=== PATIENT | female | born 1960 | race Caucasian/White ===

== ENCOUNTER 2017-02-23 17:24 | Day surgery (SDC) | payer OTHER ==
[2017-02-23] VITALS (21 sets, daily range): BP systolic 97–123; BP diastolic 56–69; PULSE 60–94; RESP 14–16; TEMP 96.7–98.3; O2SAT 60–100; Ht 160 cm; Wt 56.5 kg
[~2017-02-23] VITALS: Ht 160 cm; Wt 56.5 kg
--- OUTSIDE RECORDS SUMMARY | 2017-02-23 17:28 | XMS REPORT | CCD ---
Author Author ROSI AGUIRRE Organization Unknown Address [address], [place] [id number] Phone 0 Care Team Providers Care Waterproof Bag Sewer Name Role Phone Jaci CASIANO Attending Physician 0 Vital Signs Unknown or Not Available. Allergies Unknown or Not Available. Procedures Unknown or Not Available. History of Immunizations Unknown or Not Available. Problems Unknown or Not Available. Results LIPID PANEL - Collect Date/Time: 11/15/2014 11:15 Test Name Code Test Result Test Units Test Ref Range CHOLESTEROL 184 mg/ dL L=0 H=200 TRIGLYCERIDES 55 mg/ dL L=30 H=150 HDL 90 mg/dL L=50 H=60 LDL, CALC 83 mg/dL L=0 H=100 VLDL 11 mg/dL L=0 H=40 CHOL/HDL RISK 2.0 RATIO L=0.0 H=4.4 PT FASTING: NO N/A Active Medications Unknown or Not Available. Medications Administered During Visit Unknown or Not Available. Encounters Unknown or Not Available. Social History Smoking Status Code Start Date End Date Unknown if ever smoked [id number] Patient Decision Aids Unknown or Not Available. Discharge Instructions You were admitted to [facility] [place]. You were discharged from [facility] [place] 11/15/[place]. Should you have any questions prior to discharge, please contact a member of your healthcare team. If you have left the hospital and have any questions, please contact your primary care physician. Chief Complaint and Reason For Visit Chief Complaint Date of Onset LAB Function Status Unknown or Not Available. Plan of Care Unknown or Not Available. Referral/Transition of Care Unknown or Not Available.
--- OUTSIDE RECORDS SUMMARY | 2017-02-23 17:28 | XMS REPORT | CCD ---
Author Author ROSI AGUIRRE Organization Unknown Address [address], [place] [id number] Phone 0 Care Team Providers Care Health Promotion Coordinator Name Role Phone Dariel JACKSON MD Attending Physician [phone] Vital Signs Unknown. Allergies Unknown. Procedures Unknown. History of Immunizations Unknown. Problems Unknown. Results Unknown. Medications Unknown. Medications Administered Unknown. Encounters Unknown. Social History Smoking Status Code Start Date End Date Unknown if ever smoked [id number] Patient Decision Aids Unknown. Discharge Instructions You were admitted to [facility] on 04/01/2014. You were discharged from [facility] on 04/01/2014. Should you have any questions prior to discharge, please contact a member of your healthcare team. If you have left the hospital and have any questions, please contact your primary care physician. Chief Complaint and Reason For Visit Chief Complaint Date of Onset US Function Status Unknown. Plan of Care Unknown. Referral/Transition of Care Unknown.
--- OUTSIDE RECORDS SUMMARY | 2017-02-23 17:28 | XMS REPORT | CCD ---
Author Author DEEPA MOSLEY Organization Unknown Address [address], [place] [id number] Phone 0 Care Team Providers Care Pm Head Cook Name Role Phone GILBERT STOUT Attending Physician [phone] Vital Signs Unknown. Allergies Unknown. Procedures Unknown. History of Immunizations Unknown. Problems Unknown. Results Unknown. Medications Unknown. Medications Administered Unknown. Encounters Unknown. Social History Smoking Status Code Start Date End Date Unknown if ever smoked [id number] Patient Decision Aids Unknown. Instructions You were admitted to [facility] [place] on 12/30/2013. You were discharged from [facility] on 12/30/2013. Should you have any questions prior to discharge, please contact a member of your healthcare team. If you have left the hospital and have any questions, please contact your primary care physician. Chief Complaint and Reason For Visit Chief Complaint Date of Onset U/S ABD-LIVER/SPLEEN Function Status Unknown. Plan of Care Unknown. Referral/Transition of Care Unknown.
--- OUTSIDE RECORDS SUMMARY | 2017-02-23 17:28 | XMS REPORT | Continuity of Care Document ---
Author Author [facility] Organization [facility] Address Unknown Phone Unavailable Allergies Medications Problems Procedures Results Encounters ACCT No. Visit Date/Time Discharge Status Pt. Type Provider Facility Loc./Unit Complaint [id number] 02/08/2014 10:21:00 2013 10:21:00 DIS Outpatient Navi HOFFMANN, Guzman Vieira [facility] W.[place]
--- NOTE | 2017-02-23 17:30 | NUR ---
ARRIVED TO FLOOR PT ARRIVED TO THE FLOOR AT THIS TIME, AMBULATORY. PT ALERT AND ORIENTED X3, VITAL SIGNS STABLE, ON RA. PT IS ACCOMPANIED BY FRIEND. IV SITE TO LEFT FOREARM PRESENT FROM [facility] VISIT THAT FLUSHES WELL. PT CHANGED INTO A GOWN. CONTINUE WITH ADMIT.
[2017-02-23] MEDS ORDERED: ERTAPENEM 1 G INJECTION IM ONE (17:45)
[2017-02-23] MEDS ORDERED: FAMOTIDINE 20 MG in NORMAL SALINE 50 ML IV ONE (17:45)
[2017-02-23] MEDS ORDERED: MORPHINE SULFATE 2 MG SYRINGE IV PRN (17:45)
[2017-02-23] MEDS ORDERED: ONDANSETRON 4mg/2ml INJECTION IV PRN ×3 (17:45→19:30)
--- NOTE | 2017-02-23 17:45 | ANESPREOP ---
Anesthesia Record Date and Time DATE: 02/23/17 TIME: 17:43 Pre-Op Diagnosis acute appendicitis Proposed Surgical Procedure lap appy NPO since: a couple of bites of saltine crackers today at 11 am, but threw it up. Ht/Wt/BMI Height: 5 ' 3.00 " Weight: 55.800 kg BMI: 21.8 kg/m2 Medications Inpatient Medications Current Medications Medications (Trade) Dose Ordered Sig/Frida Start Time Stop Time Status Last Admin Dose Admin Lactated Ringer's (Lactated Ringers) 1,000 ml @ 125 mls/hr Q8H 02/23/17 17:45 UNV Morphine Sulfate (Morphine) SEE DOSE. Q1H PRN 02/23/17 17:45 UNV Ondansetron HCl (Zofran) 4 mg Q6H PRN 02/23/17 17:45 UNV Currently on Beta María: No Medical/Surgical History Anesthesia PMH: Reports: Reflux (occasionally), UTI Smoking Status: Never smoker Use Chewing Tobacco?: No Second Hand Exposure: No Substance Use Type: does not use Alcohol Intake: none Past Surgical History Orthopedic Surgeries: Abdominal Surgeries: Genitourinary Surgeries: Cardiac Surgeries: Endocrine Surgeries: Reproductive Surgeries: Neurological Surgeries: Ear Surgeries: Nose Surgeries: Throat Surgeries: Other Surgeries: Anesthesia Adverse Reactions: FOUND none Family Hx of Anesthesia Advers: none Hx of Motion Sickness: No Physical Exam Respiratory: Bilat breath sounds equal, Lungs clear Cardiovascular: FOUND Regular rate, rhythm Airway Assessment Mallampati Score: I TMD: 3 Fingerbreadths Neck Extension: Good Overall Assessment: No Airway Concerns ASA: 2, E Plan Anesthesia Plan: GETA Discussion Discussed risks/options/alternatives of anesthesia and questions answered. Patient consents. Nursing pain assessment noted. Present: Family Member Attestation Statement Prior to the delivery of any anesthetic medication, I examined the patient, developed the plan, obtained the patient's consent and discussed the risk and benefits of the procedure with the patient/guardian. MARA CARDOSO CRNA Feb 23, 2017 17:45
[2017-02-23] MEDS: LR 1,000 ML IV SCH ×2 (17:48→19:38)
[2017-02-23] MEDS ORDERED: ROCURONIUM 50mg/5ml INJECTION IV ONE (17:49)
[2017-02-23] MEDS ORDERED: FENTANYL 250mcg/5ml INJECTION ONE (17:49)
[2017-02-23] MEDS ORDERED: ONDANSETRON 4mg/2ml INJECTION ONE (17:49)
[2017-02-23] MEDS ORDERED: PROPOFOL 200mg 20 ML IV ONE (17:49)
[2017-02-23] MEDS ORDERED: DEXAMETHASONE 4mg/ml - 1ml INJECTION ONE (17:49)
[2017-02-23] MEDS ORDERED: LACT1CAP72 (18:05)
[2017-02-23] MEDS ORDERED: IBUP-1724 PO (18:05)
[2017-02-23] MEDS ORDERED: CITA10TA13 PO (18:05)
[2017-02-23] MEDS ORDERED: RANI150T12 PO (18:05)
--- NOTE | 2017-02-23 18:06 | HPPDOC ---
HPI - Adult Date DATE: 02/23/17 TIME: 18:03 General History of Present Illness 56 yo presents with RLQ abdominal pain Past Medical History Past Medical History Gerd, Nephrolithiasis Surgical History Patient's Surgical History: See dictated H and P Current Medications Home Meds Reported Medications Ibuprofen (Ibuprofen) 200 Mg Tablet, 1 TAB PO Q4H Y for PAIN, TAB 02/23/17 Ranitidine HCl (Zantac) 150 Mg Tablet, 150 MG PO BID for ACID REFLUX, TAB Take 1 tablet, by mouth, 2 times a day. 02/23/17 Lactobacillus Combo No.11 (Probiotic) 1 Each Cap.sprink, 2 02/23/17 Citalopram Hydrobromide (Celexa) 10 Mg Tablet, 1 TAB PO DAILY, TAB 02/23/17 Allergies: Coded Allergies: nitrofurantoin (Verified Allergy, Unknown, NAUSEA, 02/23/17) Family History Family History: History for prostate cancer in 2 brothers Social History Smoking Status: Never smoker Does patient use chewing tobac: No Second Hand Exposure: No Substance Use Type: does not use Advance Directives: Yes DPOA for Healthcare Only (MARA DELA CRUZ - ) GS Physical Exam Vital Signs Date Time Temp Pulse Resp B/P Pulse Ox O2 Delivery O2 Flow Rate FiO2 02/23/17 17:49 96.7 65 16 103/63 95 Room Air Height (Feet): 5 Height (Inches): 3.00 Weight (Kilograms): 55.800 BMI 21.8 FOUND: PERRL Respiratory: FOUND: clear all salomon Abdominal Brief: FOUND: Roving's sign, involuntary guarding, tender, voluntary guarding GS Assessment & Plan Assessment Appendicitis Plan Laparoscopic Appendectomy. See full dictated H and P for detail Code Status Full Code, unverified Hospital Course Summary Disclaimer The visit summary below is not to be considered part of the above Progress Note. ANY PERRY MD, FACS, CWS Feb 23, 2017 18:06
--- NOTE | 2017-02-23 18:12 | NUR ---
LEFT FLOOR PT LEFT THE FLOOR AT THIS TIME, VIA PRE-OP CART AND ACCOMPANIED BY IMPREGNATING HELPER. PT ALERT AND ORIENTED X3, VITAL SIGNS STABLE, ON RA. IV PEPCID VERIFIED WITH PRE-OP RN CHERIE LAWSON AND STARTED PRIOR TO PT LEAVING.
[2017-02-23] MEDS ORDERED: KETOROLAC 15mg/ml INJECTION IV PRN (19:15)
[2017-02-23] MEDS ORDERED: METOCLOPRAMIDE 10mg/2ml INJECTION IV PRN (19:15)
[2017-02-23] MEDS ORDERED: MORPHINE 10mg/ml vl INJECTION IV PRN (19:15)
[2017-02-23] MEDS ORDERED: MORPHINE SULFATE 4 MG SYRINGE IV PRN (19:15)
--- NOTE | 2017-02-23 19:16 | GSPOSTPN ---
Procedure Procedure Surgeon: [place] Anesthesia: SARAH ASA: 2, E Procedure Laparoscopic appendectomy GS Diagnosis Preop Diagnosis appendicitis Postop Diagnosis same Complications Complications none Estimated Blood Loss See Anesthesia Record. Vital Signs See Anesthesia and PACU record. ANY PERRY MD, FACS, CWS Feb 23, 2017 19:16
[2017-02-23] MEDS ORDERED: HYDROMORPHONE 2mg/ml INJECTION IV PRN (19:30)
--- NOTE | 2017-02-23 19:36 | ANESPO ---
Post-Op Note Date 02/23/17 Time: 19:34 Status Pt Participated in Evaluation: Pt participated in person Vital Signs Date Time Temp Pulse Resp B/P Pulse Ox O2 Delivery O2 Flow Rate FiO2 02/23/17 19:27 16 02/23/17 18:00 65 02/23/17 17:49 96.7 103/63 95 Room Air Respiratory Function: Airway patent, Regular respirations Cardiovascular Function: Regular pulse Mental Status: Alert/oriented Pain Level Intensity: 4 Hydration: IV infusing Complications during Recovery None apparent Follow-Up Instructions Instructions Per Surgeon MARA CARDOSO CRNA Feb 23, 2017 19:35
--- NOTE | 2017-02-23 19:55 | NUR ---
RETURN FROM OR PATIENT RETURNS FROM OR BY CART. TRANSFERRED BY SCOOTING. VITALS ARE STABLE ON 2L NC. PATIENT DENIES PAIN, N/V AT THIS TIME. WILL CONTINUE TO MONITOR.
[2017-02-23] MEDS ORDERED: ERTAPENEM 1 G in NORMAL SALINE 100 ML IV ONE (20:00)
[2017-02-24 00:27] VITALS: BP 97/57; PULSE 67; O2SAT 99
[2017-02-24] MEDS: HYDROCODONE/APAP 5 mg/325 mg TABLET PO PRN ×3 (01:13→12:59)
[2017-02-24 04:33] VITALS: BP 110/65; PULSE 62; RESP 16; TEMP 97.7; O2SAT 100
[2017-02-24] MEDS: LR 1,000 ML IV SCH ×2 (04:33→05:11)
[2017-02-24 04:36] VITALS: O2SAT 98
--- NOTE | 2017-02-24 05:32 | NUR ---
SHIFT SUMMARY PATIENT IS ALERT AND ORIENTED X3 THIS SHIFT. VITAL SIGNS STABLE. PATIENT RETURNED FROM OR ON 1L NC. THIS HAD TO BE INCREASED TO 2L, BUT HAS SINCE BEEN TITRATED TO ROOM AIR. PATIENT AMBULATES WELL WITH STAND BY. PAIN IS WELL CONTROLLED WITH AVAILABLE PO PAIN MEDICATIONS. LAP SITES ARE DRY AND INTACT. WILL CONTINUE TO MONITOR.
[2017-02-24 07:41] VITALS: BP 88/54; PULSE 68; RESP 18; TEMP 98.4; O2SAT 98
[2017-02-24 08:27] VITALS: PULSE 68; RESP 16
--- NOTE | 2017-02-24 10:05 | HPF ---
FINDINGS Mrs. Farah is a 56-year-old female whom I was asked to see from [facility] in [place], [place] as a result of her history, physical and radiographic findings indicative for appendicitis. Patient informs me that when she had awakened this morning she began to notice a fair amount of discomfort within her right lower quadrant. She had a component of some nausea and vomiting in association with pain. Pain is made worse when "someone pushes on her." Pain is somewhat better by lying still. Pain is constant in nature. As a result of the severe pain she presented to [facility] and had underwent a CT scan revealing evidence for appendicitis. The patient has been subsequently sent to our facility for further management. Additionally CT scan also revealed a small kidney stone involving the distal ureter. Per her report there was no evidence for ureteral dilatation or hydronephrosis. PAST MEDICAL HISTORY Findings/System disorders: 1. History for chronic back pain. 2. History for gastroesophageal reflux disease. 3. History PAST SURGICAL HISTORY 1. Back surgery. 2. Prior lithotripsy. 3. Prior EGD and colonoscopy. MEDICATIONS 1. Celexa. ALLERGIES ,Macrobid. Allergies include Macrobid. SOCIAL HISTORY The patient has no alcohol or tobacco use. FAMILY HISTORY The patient states her mother and father alive and healthy. She has had two brothers who have been diagnosed with prostate cancer. REVIEW OF SYSTEMS Review of systems undertaken with the patient essentially negative except as stated in findings section and past medical history section for constitutional, HEENT, cardiac, respiratory, GI, , musculoskeletal, Hematology/Oncology, endocrine, psychiatric. PHYSICAL EXAMINATION GENERAL: Patient is a 56-year-old female who did not appear to be in acute distress but did not appear to be comfortable in nature. She was sitting fairly still in bed with her leg somewhat drawn in an upward fashion. VITAL SIGNS: Temperature 96.7, pulse 65, respirations 16, blood pressure 103/63, SAO2 95% room air. HEENT: Normocephalic. Pupils are equally round with accommodation. NECK: Supple without lymphadenopathy. CHEST: Clear to auscultation bilaterally. HEART: Regular rate and rhythm. Normal S1 and S2 without gallops, murmurs or clicks. ABDOMEN: Palpation of the abdomen reveals it to be soft, nontender within the right upper quadrant and left upper quadrant. Palpation in the left lower quadrant resulted in referred pain to her right lower quadrant, i.e. positive Rovsing sign. Palpation within the right lower quadrant revealed exquisite tenderness. She did have a component of voluntary and involuntary guarding with palpation of the right lower quadrant. She didn't have evidence for hepatosplenomegaly or other abnormal masses. EXTREMITIES: Without clubbing, cyanosis, or edema. NEURO: Cranial nerves II-XII grossly intact. Patient is without focal motor or sensory deficits. LABORATORY/RADIOGRAPHIC EVALUATION Patient had an amylase and lipase level obtained from an outside facility that was within normal limits. She had a CMP obtained and it was found to be essentially within normal limits with the exception bilirubin is slightly elevated at 1.4. CBC was obtained and white count was elevated 13.2. Hemoglobin slightly low at 11.9. UA was obtained. She did have several RBCs corresponding with her ureterolithiasis noted on CT scan. CT scan did reveal an acute appendicitis secondary to an appendicolith. There is no evidence for abscess of free air. The patient was found have a small ovarian cyst. She is found to have a 3 mm nonobstructing right UVJ stone. ASSESSMENT 56-year-old female with acute appendicitis and finding of ureterolithiasis upon CT scan. PLAN From a general surgical standpoint I informed the patient that her history, physical findings and CT scan findings as well as her laboratory results are all indicative for appendicitis. It was therefore my recommendation that we should proceed with surgical intervention/laparoscopic appendectomy. Did discuss in detail with the patient and her mother who was present what a laparoscopic appendectomy entailed and its associated risks which included but was not inclusive of bleeding, infection, as well as potential conversion to an open procedure. The patient understood and wished to proceed. The patient will have additional followup at a later time in regards to her finding of ureterolithiasis. This small nonobstructing kidney stone should "pass on its own behalf." [facility]
[2017-02-24 11:16] VITALS: BP 104/59; PULSE 74; RESP 16; TEMP 98.2; O2SAT 98
[2017-02-24] MEDS ORDERED: HYDR-4246 PO (12:36)
--- NOTE | 2017-02-24 12:45 | NUR ---
SCRIPTS PRESCRIPTIONS FOR PAIN MEDICATION GIVEN TO THE FAMILY TO FILL AT LOCAL PHARMACY. NORCO 5/325 1-2 TABS PO Q5H NEEDED FOR PAIN PRESCRIBED BY DR. PERRY.
--- NOTE | 2017-02-24 13:20 | NUR ---
DISMISSAL PT HAS BEEN AMBULATING IN [facility] WITHOUT DIFFICULTY. PO PAIN MEDS MANAGING PAIN WELL. PT VERBALIZES UNDERSTANDING GAS PAIN WILL HAVE TO DISSIPATE ON ITS OWN, WALKING HELPS. WENT OVER WRITTEN DISMISSAL INSTRUCTIONS WITH PT INCLUDING DIET, ACTIVITY/RESTRICTIONS, WOUND CARE, F/U APPT, S/SX TO REPORT. PT VERBALIZED UNDERSTANDING. 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 PT AMBULATED OUT OF [facility] ACCOMPANIED BY [facility] TO FRONT ENTRANCE FOR TRANSPORT HOME BY FAMILY.
--- NOTE | 2017-02-24 13:44 | OPNOTEF ---
DATE OF OPERATION 02/23/17 PREOPERATIVE DIAGNOSIS Appendicitis. POSTOPERATIVE DIAGNOSIS Appendicitis. PROCEDURE Laparoscopic appendectomy. ANESTHESIA General endotracheal. FLUIDS Please see chart. INDICATIONS Mrs. Farah is a 56-year-old female who I was asked to accept as a new patient from [facility] in [place], [place] as a result of her history and physical findings and radiographic evidence indicative for appendicitis. I did accept the patient in transfer. Upon examination the patient was found exquisitely tender within her right lower quadrant. Did have a component of leukocytosis. CT scan obtained at outside facility did reveal evidence for appendicitis. This as a result of the above indications it was recommended to the patient she undergo surgical intervention. FINDINGS Upon laparoscopy liver edge was smooth without nodularities. Small bowel, omentum, colon which was visualized was within normal limits. Appendix was found to be significantly indurated and erythematous in nature consistent with that of appendicitis. There is no evidence for shelbi perforation. A standard appendectomy was able to be completed without incident. PROCEDURE After informed consent was obtained the patient was brought to the operative suite and placed on the table in supine fashion. Abdomen was prepped and draped in sterile fashion. A formal time-out was then completed. 0.25% of Marcaine with epinephrine was injected just beneath the umbilicus. A 2 cm curved incision was made through the area of analgesia. Dissection was carried down into the deep subcuticular tissues and underlying fascia. The fascia was then grasped with two Latricia clamps and retracted anteriorly. A 1 cm incision was then made between the two Latricia clamps. Hemostat was then introduced and the fascial incision gently spread. A U stitch was then placed with 0 Vicryl. A 12 mm on Scar port was then placed the peritoneal cavity and pneumoperitoneum was established to a patient pressure of 15 mmHg of carbon dioxide. Next an additional 12 mm port was then placed within the right upper quadrant as well as additional 5 mm port within the suprapubic region. Each port site was preinjected with 0.25% Marcaine and epinephrine placed under visualization. Abdominal cavity was explored via laparoscopic. Findings were as noted above. Appendix was found to be erythematous in and or indurated in nature and did contain a component of a minimal amount of periappendiceal exudate. There was no evidence for perforation. Appendix was able be grasped and retracted anteriorly. A small opening was then created within the mesoappendix adjacent to the base of the appendix. A linear stapler with a GI load was then placed across the base of the appendix and fired. Vascular reload was then replaced within the linear stapler and placed across the mesoappendix and fired. Unfortunately the stapler did misfire. There was a small amount of bleeding that began to occur and an arising hemoclip was then placed at the site of bleeding resulting in hemostasis. A vascular reload was then undertaken and replaced within the linear stapler and placed across the mesoappendix and subsequently fired a second time. This did result in the completion of the staple line that was intact. Appendix was then removed from the infraumbilical port site. Irrigation was performed and all irrigant was suctioned until clear. Both the staple lines were carefully inspected and found be hemostatic and completely intact in nature. All irrigant was suctioned until clear. Next, ports removed under direct visualization. Previously placed U stitch at the infraumbilical port was then secured imbricating the fascia. All skin incisions were then closed in a subcuticular fashion with 4-0 Monocryl. Dermabond was placed overlying the incisions. The patient has awakened from her anesthetic and will be sent back to recovery room once deemed in stable condition. ARELY
--- NOTE | 2017-02-24 15:48 | PNF ---
DATE 02/24/17 FINDINGS Mrs. Farah this morning states she is feeling better. The pain that she was experiencing in her right lower quadrant has resolved. She now has experienced some incisional discomfort as one would expect. PHYSICAL EXAMINATION VITAL SIGNS: Afebrile, normotensive. ABDOMEN: Soft. Minimal tenderness. No evidence for guarding or rebound. ASSESSMENT Status post laparoscopic appendectomy, patient doing well. PLAN Discharged to home. Please refer to discharge instructions.. YAND
--- OUTSIDE RECORDS SUMMARY | 2017-02-25 09:00 | XMS REPORT | Continuity of Care Document ---
Author Author Organization Address Unknown Phone Unavailable Support Name Relationship Address Phone SUJIT KEATING APRN Caregiver [address] [place] [id number] Unavailable ANY PERRY FACS, MD Caregiver [address] [place] [address] [place] [address] Unavailable ANY PERRY FACS, MD Caregiver [address] [place] [address] [place] [address] Unavailable MARA DELA CRUZ Next Of Kin [address] [place] [address] Insurance Providers Guarantor Zara Dela Cruz Address [address] [place] [address] Email DENIED 17 Payer Other A Insurance Policy Number [id number] Subscriber's Name LanieZara kramer Relationship 18 Self Effective Date 15 Advance Directives Directive Response Recorded Date/Time Ordered Resuscitation Status Full Code, unverified 02/23/17 5:38pm Resuscitation Documents on File No 02/23/17 5:36pm DPOA for Healthcare Only Y MARA Vieira. LANIE - 02/23/17 6:06pm Living Will Yes 02/23/17 5:36pm Problems No problem information available. Medications Current Home Medications Medication Dose Units Route Directions Days Qty Instructions Start Date Citalopram Hydrobromide (Celexa) 10 Mg Tablet 1 Tab Oral Daily Hydrocodone/Acetaminophen ([place] 5-325 Tablet) 5-325 Tablet 1-2 Tab Oral Every 5 Hours as needed for Pain 20 Tablet 02/24/17 Ibuprofen 200 Mg Tablet 1 Tab Oral Every 4 Hours as needed for Pain 02/23/17 Lactobacillus Combo No.11 (Probiotic) 1 Each Cap.sprink 2 02/23/17 Ranitidine Hcl (Zantac) 150 Mg Tablet 150 Mg Oral Twice A Day for Acid Reflux Take 1 tablet, by mouth, 2 times a day. 02/23/17 Social History Social History Problem Response Recorded Date/Time Onset Date Status Reason for Hospitalization appendicitis 02/24/2017 12:40pm Not Applicable Not Applicable Query Response Start Date Stop Date Smoking Status Never smoker Hospital Discharge Instructions Instructions: Care Instructions: I was in the hospital because (patient own words): "PAIN ON THE RIGHT SIDE, LOWER ABDOMEN" Discharge Diet: Regular Discharge Activity: Ad janna Follow Up Appointments: Call office for appointment in 10-14 days Pending Lab / Results: No Pending Lab Expected Signs/Symptoms: incisional tendernes Notify Physician If: Increasing pain or discomfort. During Business Hours:: Please call the physician's office at After Business Hours:: Please call [phone] and have the robotype operator page the physician. Pain Management/Treatment: Utilize pain medications as needed Pain Scale Utilized to Educate Patient: 0-10 Pain Scale Wound/Incision Care: May shower or bath Condition at time of discharge: Good Plan of Care Discharge Date 02/24/17 1:20pm Disposition 01 DISCHARGED HOME, SELF-CARE Instructions/Education Provided Laparoscopic Appendectomy (DC) Prescriptions See Medication Section Care Plan and Goals See Discharge Instructions Section Functional Status Query Response Date Recorded Mobility Status Ambulatory February 23, 2017 5:44pm Assistive Devices None February 23, 2017 5:44pm Activity Limitations None February 23, 2017 5:44pm Feeding Ability Independent February 23, 2017 5:44pm Toileting Ability Independent February 23, 2017 5:44pm Grooming Ability Independent February 23, 2017 5:44pm Dressing Ability Independent February 23, 2017 5:44pm Driving Ability Independent February 23, 2017 5:44pm Housework Ability Independent February 23, 2017 5:44pm Meal Preparation Ability Independent February 23, 2017 5:44pm Stair Climbing Ability Independent February 23, 2017 5:44pm Ability to complete ADL's impeded by No change February 23, 2017 5:44pm Cognitive/Perceptual Impairments None February 23, 2017 5:44pm Allergies, Adverse Reactions, Alerts Allergen Type Severity Reaction Status Last Updated Nitrofurantoin Allergy Unknown NAUSEA Active 02/23/17 Immunizations Query Response on File Recorded Date/Time Hx Influenza Vaccination Y UNKNOWN 02/23/17 5:40pm Hx Pneumococcal Vaccination No 02/23/17 5:40pm Hx Influenza Vaccination Y UNKNOWN 02/23/17 5:40pm Vital Signs Acute Vital Signs Vital Response Date/Time Temperature (Fahrenheit) 98.2 deg F (96.8 - 99.1) 02/24/2017 11:16am Temperature (Calculated Celsius) 36.67602 degrees C (36.0 - 37.3) 02/24/2017 11:16am Temperature Source Oral 02/24/2017 11:16am Pulse Rate (adult) 74 bpm (60 - 100) 02/24/2017 11:16am Respiratory Rate 16 breaths/min (10 - 20) 02/24/2017 11:16am O2 Sat by Pulse Oximetry 98 % (90 - 100) 02/24/2017 11:16am Oxygen Delivery Method Room Air 02/24/2017 11:16am Oxygen Delivery Method Nasal Cannula 02/23/2017 7:50pm Oxygen Flow Rate 2.00 L/min 02/24/2017 4:33am Blood Pressure 104/59 mm Hg 02/24/2017 11:16am Blood Pressure Source Automatic Cuff 02/24/2017 11:16am Height (Feet) 5 feet 02/23/2017 6:06pm Height (Inches) 3.00 inches 02/23/2017 6:06pm Weight (Kilograms) 56.500 kg 02/24/2017 7:40am Body Mass Index (BMI) 21.8 02/23/2017 5:35pm Results No known relevant diagnostic tests, laboratory data and/or discharge summary. Procedures Procedure Status Date Provider(s) Laparoscopic appendectomy Completed 02/23/17 ANY PERRY MD, CHIDI, KELLYS Encounters Encounter Location Arrival/Admit Date Discharge/Depart Date Attending Provider Admitted Inpatient (obs) 02/23/17 5:24pm ANY PERRY FACS, MD
--- OUTSIDE RECORDS SUMMARY | 2017-02-25 09:00 | XMS REPORT | Continuity of Care Document ---
Author Author [facility] Organization [facility] Address Unknown Phone Unavailable Allergies Medications Problems Procedures Results Encounters ACCT No. Visit Date/Time Discharge Status Pt. Type Provider Facility Loc./Unit Complaint [id number] 02/08/2014 10:21:00 2013 10:21:00 DIS Outpatient Navi HOFFMANN, Guzman Vieira [facility]
--- OUTSIDE RECORDS SUMMARY | 2017-02-25 09:00 | XMS REPORT | Continuity of Care Document ---
Author Author [facility] Organization [facility] Address Unknown Phone Unavailable Support Name Relationship Address Phone SUJIT KEATING APRN Caregiver [address] [place] [address] Unavailable ANY PERRY FACS, MD Caregiver [address] [place] [address] [place] [address] Unavailable ANY PERRY FACS, MD Caregiver [address] [place] [address] [place] [address] Unavailable MARA DELA CRUZ Next Of Kin [address] [place] [address] Insurance Providers Guarantor Zara Dela Cruz Address [address] [place] [address] Email DENIED 17 Payer Other A Insurance Policy Number [id number] Subscriber's Name LanieZara kramer Relationship 18 Self [...] Mg Tablet 1 Tab Oral Daily Hydrocodone/Acetaminophen ([place] 5-325 Tablet) 5-325 Tablet 1-2 Tab Oral [...] office at After Business Hours:: Please call [phone] and have the tower operator page the physician. Pain Management/Treatment: Utilize pain medications as needed Pain Scale Utilized to Educate Patient: 0-10 Pain Scale Wound/Incision Care: May shower or bath Condition at time of discharge: Good Plan of Care Discharge Date 02/24/17 1:20pm Instructions/Education Provided Laparoscopic Appendectomy (DC) Prescriptions See Medication Section Functional Status Query Response Date Recorded [...] - 99.1) 02/24/2017 11:16am Temperature (Calculated Celsius) 36.05166 degrees C (36.0 - 37.3) 02/24/2017 11:16am [...] appendectomy Completed 02/23/17 ANY PERRY MD, CHIDI, LUZ ELENA Encounters Encounter Location Arrival/Admit Date Discharge/Depart Date Attending Provider Departed [facility] 02/23/17 5:24pm 02/24/17 1: 20pm ANY PERRY FACS, MD
== END 2017-02-24 13:20 | disposition home or self-care (01) ==
LOC: UNDOADMOB 17:24 → SRG 17:24 → SCU 17:24 → UNDODISOB 02-24 13:20 → SCU 02-24 13:20 → EDSTATUS 02-25 08:56
PROVIDERS: ATTEND Surgery
DX: K35.80 Unspecified acute appendicitis (principal); K38.1 Appendicular concretions; N20.1 Calculus of ureter; K21.9 Gastro-esophageal reflux disease without esophagitis; G89.29 Other chronic pain; Z79.899 Other long term (current) drug therapy
CPT/HCPCS: 44970; 99218; J0330; J1100; J1170; J1335; J2405; J2704; J3010; J7030; J7050; J7120